=== PATIENT | male | born 1950 | race Caucasian/White ===

== ENCOUNTER 2021-02-21 07:55 | Day surgery (SDC) | payer OTHER ==
[~2021-02-21] VITALS: Ht 188 cm; Wt 72.5 kg
[2021-02-21] MEDS ORDERED: albumin 25% 100mL bottle x 1 IV PRN (08:15)
[2021-02-21 08:30] VITALS: BP 148/82
[2021-02-21] MEDS ORDERED: ATOR40TA PO (08:34)
[2021-02-21] MEDS ORDERED: LOP25T PO (08:39)
[2021-02-21] MEDS ORDERED: MAGN420T PO (08:39)
[2021-02-21] MEDS ORDERED: GABA300C PO (08:39)
[2021-02-21] MEDS ORDERED: [UNRECOGNIZED DRUG - CODE] SQ (08:39)
[2021-02-21] MEDS ORDERED: OSC500T PO (08:39)
[2021-02-21] MEDS ORDERED: MULT-227 PO (08:39)
[2021-02-21] MEDS ORDERED: ASPI-1265 PO (08:39)
[2021-02-21] MEDS ORDERED: MORP30TA PO (08:39)
[2021-02-21] MEDS ORDERED: NALO4SPR BOTHNARES (08:39)
[2021-02-21 09:45] VITALS: BP 148/83
[2021-02-21 10:00] VITALS: BP 161/83
--- NOTE | 2021-02-21 10:00 | NUR ---
Called [facility] to speak with the referring CHAMBER WALKER, Nia Asencio, to see if she would like the pleural fluid sample sent for pathology. FEDE Guo spoke with Kelli Asencio and said not to send fluid for pathology.
[2021-02-21 10:15] VITALS: BP 159/92
[2021-02-21 10:30] VITALS: BP 142/85
== END 2021-02-21 10:40 | disposition home or self-care (01) ==
LOC: SSTAY O 07:55
PROVIDERS: ATTEND Preventive Medicine Aerospace Medicine
DX: J90 Pleural effusion, not elsewhere classified (principal); I25.10 Atherosclerotic heart disease of native coronary artery without angina pectoris; E78.5 Hyperlipidemia, unspecified; I12.9 Hypertensive chronic kidney disease with stage 1 through stage 4 chronic kidney disease, or unspecified chronic kidney disease; N18.9 Chronic kidney disease, unspecified; Z85.048 Personal history of other malignant neoplasm of rectum, rectosigmoid junction, and anus; Z79.899 Other long term (current) drug therapy; Z79.82 Long term (current) use of aspirin
CPT/HCPCS: 32555

== ENCOUNTER 2021-03-05 08:19 | Day surgery (SDC) | payer OTHER ==
[~2021-03-05] VITALS: Ht 188 cm; Wt 74.4 kg
[~2021-03-05 08:19] MED LIST: ASPI-1265 PO; ATOR40TA PO; GABA300C PO; LOP25T PO; MAGN420T PO; MORP30TA PO; MULT-227 PO; NALO4SPR BOTHNARES; OSC500T PO; [UNRECOGNIZED DRUG - CODE] SQ
[2021-03-05] MEDS ORDERED: LIDOcaine 1% 30ml preserv. free vial SQ STA (08:32)
[2021-03-05] MEDS ORDERED: albumin 25% 100mL bottle x 1 IV PRN (08:40)
[2021-03-05 08:43] VITALS: BP 160/89
[2021-03-05 08:52] VITALS: BP 146/99
[2021-03-05 09:15] VITALS: BP 153/80
[2021-03-05 09:22] VITALS: BP 157/90
[2021-03-05 09:37] VITALS: BP 162/84
[2021-03-05 09:45] VITALS: BP 155/82
== END 2021-03-05 10:10 | disposition home or self-care (01) ==
LOC: SSTAY O 08:19
PROVIDERS: ATTEND Radiology Diagnostic Radiology
DX: J90 Pleural effusion, not elsewhere classified (principal); I25.10 Atherosclerotic heart disease of native coronary artery without angina pectoris; E78.5 Hyperlipidemia, unspecified; I12.9 Hypertensive chronic kidney disease with stage 1 through stage 4 chronic kidney disease, or unspecified chronic kidney disease; N18.9 Chronic kidney disease, unspecified; Z85.048 Personal history of other malignant neoplasm of rectum, rectosigmoid junction, and anus
CPT/HCPCS: 32555

== ENCOUNTER 2021-03-17 21:16 | Inpatient (IN) | payer OTHER, MEDICARE ==
[~2021-03-17] VITALS: Ht 188 cm; Wt 75.0 kg
[2021-03-17 22:25] LABS: BASOPHILS % (AUTO) 0.2 % (0-1); EOSINOPHILS % (AUTO) 0 % (0-6); HEMATOCRIT 29.9 % (42.0-52.0); HEMOGLOBIN 9.3 g/dl (14.0-17.9); LYMPHOCYTES # (AUTO) 0.5 X10'3 (1.1-4.8); LYMPHOCYTES % (AUTO) 3.7 % (21-51); MEAN CORPUSCULAR HEMOGLOBIN 26.6 PG (27.0-31.0); MEAN CORPUSCULAR VOLUME 85.9 FL (78-98); MEAN PLATELET VOLUME 7.6 FL (7.4-10.4); MONOCYTES % (AUTO) 7.5 % (2-12); NEUTROPHILS # (AUTO) 11.2 X10'3 (1.8-7.7); NEUTROPHILS % (AUTO) 88.6 % (42-75); PLATELET COUNT 513 X10'3 (140-440); RED BLOOD COUNT 3.48 X10'6 (4.70-6.10); RED CELL DISTRIBUTION WIDTH 18.5 % (11.5-14.5); WHITE BLOOD COUNT 12.7 X10'3 (4.5-11.0)
[2021-03-17 22:35] LABS: ALANINE AMINOTRANSFERASE 19 U/L (12-78); ALBUMIN 2.7 G/DL (3.4-5.0); ALBUMIN/GLOBULIN RATIO 0.6 (1.1-1.5); ALKALINE PHOSPHATASE 140 IU/L (46-116); ANION GAP 16 (8-16); ASPARTATE AMINO TRANSFERASE 19 U/L (10-37); BILIRUBIN,TOTAL 0.7 MG/DL (0.1-1.0); BLOOD UREA NITROGEN 29 MG/DL (7-18); BUN/CREATININE RATIO 16.2 (5.4-32.0); CHLORIDE 97 MMOL/L (99-107); CREATININE 1.79 MG/DL (0.60-1.10); GLUCOSE 149 MG/DL (70-104); LIPASE < 50 U/L (73-393); POTASSIUM 4.2 MMOL/L (3.5-5.1); SODIUM 134 MMOL/L (135-145); TOTAL CARBON DIOXIDE 21.4 MMOL/L (24-32); TOTAL PROTEIN 7.5 G/DL (6.4-8.2); eGFR 38 ML/MIN
--- NOTE | 2021-03-17 23:49 | NUR ---
Patient to CT
[2021-03-18] VITALS (8 sets, daily range): BP systolic 71–108; BP diastolic 34–69
[2021-03-18] MEDS ORDERED: morphine 4 MG/ML inj SYRINge IV ONE (00:10)
[2021-03-18] MEDS ORDERED: ondansetron/PF 4mg/2ml inj IV ONE (00:10)
[2021-03-18] MEDS ORDERED: normal saline 1000ML IV soln IVB ONE ×2 (00:10→00:15)
[2021-03-18] MEDS ORDERED: ceFOXitin 2GM-NS 100mL ADDvant 100 ML IV ONE (00:15)
--- NOTE | 2021-03-18 00:43 | NUR ---
Patient given Morphine and Zofran, is resting comfortably on gurney.
[2021-03-18] MEDS ORDERED: acetaminophen 650mg rectal suppository RC PRN (02:55)
[2021-03-18] MEDS ORDERED: mag hydrox/Alum hydrox/simeth 30ml oral suspension PO PRN (02:55)
[2021-03-18] MEDS ORDERED: acetaminophen 325mg tablet PO PRN ×2 (02:55)
[2021-03-18] MEDS ORDERED: diphenhydrAMINE 25mg capsule PO PRN (02:55)
[2021-03-18] MEDS ORDERED: HYDROcodone/acetaminophen 5mg/325mg tablet PO PRN (02:55)
[2021-03-18] MEDS ORDERED: normal saline 1000ml 1,000 ML IV SCH (02:55)
[2021-03-18] MEDS ORDERED: bisacodyl 10mg suppository rectal RC PRN (02:55)
[2021-03-18] MEDS ORDERED: ondansetron 4mg rapidly disintigrating tab PO PRN (02:55)
[2021-03-18] MEDS ORDERED: morphine 2 MG/ML inj. syringe IV PRN ×2 (02:55)
[2021-03-18] MEDS ORDERED: diphenhydrAMINE 50 mg/ml inj IV PRN (02:55)
[2021-03-18] MEDS ORDERED: ondansetron/PF 4mg/2ml inj IV PRN (02:55)
[2021-03-18] MEDS ORDERED: HYDROmorphone inj. 0.5 MG/0.5 ML DISP.SYRIN IV PRN (02:55)
[2021-03-18] MEDS ORDERED: HYDROcodone/acetaminophen 10/325mg tab PO PRN (02:55)
[2021-03-18] MEDS ORDERED: magnesium hydroxide 30ml (MOM) UD suspension PO PRN (02:55)
--- NOTE | 2021-03-18 03:30 | NUR ---
Patient unable to urinate, Dr. Jonas in room. Order given for torres placement due to retention.
[2021-03-18] MEDS ORDERED: LIDOcaine 2% 10ml TOPICAL JELLY (Urojet) MM ONE (03:55)
--- NOTE | 2021-03-18 05:50 | NUR ---
Patient arrived to floor via gurney from the ER. Addendum: 03/18/21 at 0646 by Melinda Hernandez RN A&O x3 and slide board used to transfer over to bed. At this time patient in no active distress. VS taken and 2 RN skin check completed.
[2021-03-18 05:51] LABS: CLARITY,URINE CLOUDY (Clear); COLOR,URINE YELLOW (Yellow); GLUCOSE, URINE NEGATIVE (Neg); KETONES,URINE TRACE mg/dl (Neg); LEUKOCYTE ESTERASE ,URINE TRACE (Neg); NITRITES, URINE NEGATIVE (Neg); OCCULT BLOOD,URINE LARGE (Neg); PH,URINE 5.5 (4.8-8.0); PROTEIN,URINE 100 mg/dl (Neg); UROBILINOGEN,URINE 0.2 E.U/dL (0.2-1.0)
[2021-03-18 06:00] LABS: UA COLLECTION TYPE NON-SPECIFIED
[2021-03-18 06:02] LABS: RBC,URINE TNTC /HPF (0-2); WBC,URINE 50-100 /HPF (0-4)
--- NOTE | 2021-03-18 06:02 | NUR ---
patient arrived to floor from Er via gurney. A&O, belly distended.
[2021-03-18 06:03] LABS: BACTERIA,URINE 1+ /HPF (Neg); CAL OXALATE CRYSTALS 1+ /HPF (NEGATIVE); MUCUS STRANDS NONE SEEN /LPF (Neg); SQUAMOUS EPITHELIAL CELL,UR FEW /LPF (FEW)
--- NOTE | 2021-03-18 06:10 | NUR ---
Ng tube inserted via R nares. Green bile draining to suction.
--- NOTE | 2021-03-18 06:18 | NUR ---
Critical result received from lab regarding patient's lactic level at 0608. Hospitalist notified, strict I&Os ordered with fluid boluses optional
--- NOTE | 2021-03-18 06:40 | NUR ---
Problems reprioritized. Patient report given, questions answered & plan of care reviewed with Bria MISTRY.
--- NOTE | 2021-03-18 06:45 | NUR ---
Patient in room [facility]. I have received report from trupti and had the opportunity to ask questions and assume patient care.
--- NOTE | 2021-03-18 06:47 | NUR ---
250mL blous started due to a blood pressure of 76/45
--- NOTE | 2021-03-18 07:01 | NUR ---
Dr. Quezada at bedside. Aware of critical lab and BP's.
--- NOTE | 2021-03-18 07:03 | NUR ---
PAGER ID: [phone] MESSAGE: Bria Surg [id number] Re: a patient Dr Quezada needs to speak with you about. Please call
[2021-03-18 07:06] LABS: APTT 29 SECONDS (22-32)
--- NOTE | 2021-03-18 07:21 | NUR ---
PAGER ID: [phone] MESSAGE: [id number] Lilly P: critical lactic redraw of 5.3. any new orders? thanks, jamey [phone]
--- NOTE | 2021-03-18 07:30 | NUR ---
Patient attached to continuos blood pressure monitoring due to hypotension. 74/30, 64/44, 76/46. Patient temperature 95.9 temporal Bare hugger applied for comfort.
--- NOTE | 2021-03-18 07:31 | NUR ---
last BP 74/30. lactic 5.3 Dr. Quezada aware.
--- NOTE | 2021-03-18 07:50 | NUR ---
PAGER ID: [phone] MESSAGE: Belkis Surg [id number] Re: please call Lilly KeyesB BP 69/44 HR 86 can we transfer him to ICU we have a bed
[2021-03-18] MEDS ORDERED: pantoprazole 40MG/NS 100ML BAG 100 ML IV SCH (08:00)
[2021-03-18] MEDS ORDERED: ceFOXitin inj 1,000 MG in normal saline 100ml IV soln 100 ML IV SCH (08:00)
[2021-03-18] MEDS ORDERED: piperacillin/tazo 3.375gm/50ml 50 ML IV SCH (08:00)
[2021-03-18] MEDS ORDERED: docusate sod 100mg capsule PO SCH (08:00)
[2021-03-18 08:25] LABS: CREATINE KINASE 35 U/L (39-308); MAGNESIUM 1.4 MG/DL (1.5-2.4); PHOSPHORUS 5.2 MG/DL (2.3-4.5)
--- NOTE | 2021-03-18 08:30 | NUR ---
Patient transferred to ICU room 2041. Bedside report given to FEDE Benito. All belongings taken with patient.
--- NOTE | 2021-03-18 08:30 | NUR ---
Patient transferred to ICU. receiving RN at bedside Jerad. Report given to Lucila MISTRY. Patient IV in tact patent and running NS. Patient transferred with all belongings.
--- NOTE | 2021-03-18 09:00 | NUR ---
Student documentation: I have reviewed and agree with all interventions, assessments performed and documented by SN Preston.
[2021-03-18] MEDS ORDERED: NORepinephrine 8mg/ 250ml NS 250 ML IV ONE (09:11)
[2021-03-18] MEDS ORDERED: NORepinephrine 8mg/ 250ml NS 250 ML IV SCH (09:15)
[2021-03-18 11:34] LABS: HEMOGLOBIN A1C 6.2 % (4.5-6.2)
--- NOTE | 2021-03-18 12:06 | NUR ---
Initial: Pt admitted w/ rectal sigmoidal cancer with distant metastasis, SBO, sepsis, and L pleural effusion per EMR. Pt may be going to OR though per MD unsure if family will decide for comfort measures. Pt currently NPO. NGT in place on continuous/low suction w/ 700ml out this morning per documentation. LBM 03/18. Limited nutrition interventions at this time, will continue to monitor. Recs: 1. Advance to Regular diet as medically indicated 2. IF to remain NPO, consider TF if within POC 3. Bowel care per MD 4. Weekly wts Addendum: 03/18/21 at [address] Amended: Links added.
--- NOTE | 2021-03-18 16:09 | NUR ---
Pt pronounced at 1515 with RN and MD at bedside. All pt belongings taken with family.
--- NOTE | 2021-03-18 16:15 | NUR ---
Donor network and sack lifter notified. Pt will be taken to [facility].
[2021-03-18] MEDS ORDERED: calcium carbonate 500mg tablet PO SCH (20:00)
[2021-03-18] MEDS ORDERED: gabapentin 300mg capsule PO SCH (20:00)
[2021-03-18] MEDS ORDERED: temazepam 15mg capsule PO PRN (21:00)
== END 2021-03-18 22:09 | DRG 871 ==
LOC: ER 21:17 → ED HOLD 03-18 02:58 → SUR 3N 03-18 05:54 → ICU 2S 03-18 08:20
PROVIDERS: ADMIT Family Medicine; ATTEND Internal Medicine
PROC: 0W9B30Z Drainage of Left Pleural Cavity with Drainage Device, Percutaneous Approach (ICD-10-PCS; principal; 2021-03-18)
PROC: 0D9670Z Drainage of Stomach with Drainage Device, Via Natural or Artificial Opening (ICD-10-PCS; 2021-03-18)
PROC: 06HY33Z Insertion of Infusion Device into Lower Vein, Percutaneous Approach (ICD-10-PCS; 2021-03-18)
DX: A41.9 Sepsis, unspecified organism (principal); I63.9 Cerebral infarction, unspecified; E87.1 Hypo-osmolality and hyponatremia; C78.5 Secondary malignant neoplasm of large intestine and rectum; E87.2 Acidosis; N17.9 Acute kidney failure, unspecified; C78.00 Secondary malignant neoplasm of unspecified lung; I31.3 Pericardial effusion (noninflammatory); K56.609 Unspecified intestinal obstruction, unspecified as to partial versus complete obstruction; K92.2 Gastrointestinal hemorrhage, unspecified; L03.311 Cellulitis of abdominal wall; R64 Cachexia; J98.19 Other pulmonary collapse; J91.0 Malignant pleural effusion; R47.01 Aphasia; R57.9 Shock, unspecified; Z20.822 Contact with and (suspected) exposure to COVID-19; C61 Malignant neoplasm of prostate; E78.5 Hyperlipidemia, unspecified; Z96.0 Presence of urogenital implants; E86.0 Dehydration; F12.90 Cannabis use, unspecified, uncomplicated; G62.9 Polyneuropathy, unspecified; K59.00 Constipation, unspecified; I12.9 Hypertensive chronic kidney disease with stage 1 through stage 4 chronic kidney disease, or unspecified chronic kidney disease; I25.10 Atherosclerotic heart disease of native coronary artery without angina pectoris; N18.9 Chronic kidney disease, unspecified; Z87.891 Personal history of nicotine dependence; Z93.2 Ileostomy status; Z95.5 Presence of coronary angioplasty implant and graft; Z68.21 Body mass index [BMI] 21.0-21.9, adult; I46.9 Cardiac arrest, cause unspecified; Z79.899 Other long term (current) drug therapy
CPT/HCPCS: 32557; 36415; 71045; 71250; 74176; 80053; 81001; 82550; 83036; 83605; 83690; 83735; 83880; 84100; 84145; 84443; 85025; 85610; 85730; 86885; 86900; 86901; 87040; 87088; 87635; 99285; C9113; G0378; J0694; J2270; J2405; J3490; J7030